=== PATIENT | female | born 1995 | race African-American/Black ===

== ENCOUNTER 2017-04-28 16:42 | Emergency (ER) | payer OTHER ==
[~2017-04-28] VITALS: Ht 162.6 cm; Wt 65.5 kg
[2017-04-28 16:43] VITALS: BP 120/69
[2017-04-28] MEDS ORDERED: AMOX500C PO (18:04)
[2017-04-28 18:27] LABS: CONTROL LINE HCG INT CTR LINE PRESENT
== END 2017-04-28 18:57 | disposition home or self-care (01) ==
LOC: M ED 16:42
DX: J02.0 Streptococcal pharyngitis (principal); N92.6 Irregular menstruation, unspecified

== ENCOUNTER 2017-08-01 06:36 | Emergency (ER) | payer OTHER ==
[2017-08-01] MEDS: ONDANSETRON 4 MG ORAL DISINTEGRATING TAB (S0181) PO (07:26)
== END 2017-08-01 08:40 | disposition home or self-care (01) ==
LOC: M ED 06:36
DX: O99.281 Endocrine, nutritional and metabolic diseases complicating pregnancy, first trimester (principal); E86.0 Dehydration; O30.001 Twin pregnancy, unspecified number of placenta and unspecified number of amniotic sacs, first trimester; Z3A.00 Weeks of gestation of pregnancy not specified; Z79.2 Long term (current) use of antibiotics
CPT/HCPCS: 99283

== ENCOUNTER 2017-08-16 12:29 | Emergency (ER) | payer OTHER ==
[2017-08-16 13:57] LABS: BASO % 0.4 % (0.0-1.0); EOS # 0.1 10^3/uL (0.0-0.50); HEMATOCRIT 37.8 % (36.0-47.0); HEMOGLOBIN 12.7 g/dl (12.0-16.0); IMMATURE GRANULOCYTE % 0.4 % (0-3.0); LYMPH # 2.6 10^3/uL (1.5-6.5); LYMPH % 23.2 % (24.0-44.0); MEAN CORPUSCULAR HGB CONC 33.6 g/dl (32.0-36.5); MEAN CORPUSCULAR VOLUME 80.3 fl (80.0-96.0); MONO % 8.9 % (0.0-5.0); NEUTROPHILS # 7.6 10^3/uL (1.8-7.7); NEUTROPHILS % 66.1 % (36.0-66.0); PLATELET COUNT, AUTOMATED 238 10^3/uL (150-450); RED BLOOD COUNT 4.71 10^6/uL (4.00-5.40); RED CELL DISTRIBUTION WIDTH 16.9 % (11.5-14.5); WHITE BLOOD COUNT 11.4 10^3/uL (4.0-10.0)
[2017-08-16 14:54] LABS: HCG, SERUM QUANTITATIVE 164836 MIU/ML
== END 2017-08-16 16:43 | disposition home or self-care (01) ==
LOC: M ED 12:29
DX: O20.0 Threatened abortion (principal); O46.92 Antepartum hemorrhage, unspecified, second trimester; O30.032 Twin pregnancy, monochorionic/diamniotic, second trimester; Z3A.15 15 weeks gestation of pregnancy; Z79.899 Other long term (current) drug therapy
CPT/HCPCS: 76817

== ENCOUNTER → 2017-08-31 | Outpatient (CLI) | payer OTHER | LOC: M RAD 12:43 | DX: Z36.89 Encounter for other specified antenatal screening (principal); O30.032 Twin pregnancy, monochorionic/diamniotic, second trimester; Z3A.17 17 weeks gestation of pregnancy | CPT/HCPCS: 76816 ==

== ENCOUNTER 2017-09-02 16:55 | Outpatient (CLI) | payer OTHER ==
[2017-09-02 17:58] LABS: HEMATOCRIT 34.3 % (36.0-47.0); HEMOGLOBIN 11.8 g/dl (12.0-15.5); MEAN CORPUSCULAR HEMOGLOBIN 27.6 pg (27.0-33.0); MEAN CORPUSCULAR HGB CONC 34.4 g/dl (32.0-36.5); MEAN CORPUSCULAR VOLUME 80.3 fl (80.0-96.0); PLATELET COUNT, AUTOMATED 233 10^3/uL (150-450); RED BLOOD COUNT 4.27 10^6/uL (4.00-5.40); RED CELL DISTRIBUTION WIDTH 16.2 % (11.5-14.5); WHITE BLOOD COUNT 10.6 10^3/uL (4.0-10.0)
[2017-09-02 18:25] LABS: APPEARANCE, URINE CLOUDY (CLEAR); BACTERIA, URINE AUTO 1+ (NEGATIVE); BILIRUBIN, URINE AUTO NEGATIVE (NEGATIVE); BLOOD, URINE BLOOD NEGATIVE (NEGATIVE); COLOR, URINE YELLOW (YELLOW); GLUCOSE, URINE (UA) AUTO NEGATIVE (NEGATIVE); KETONE, URINE AUTO NEGATIVE (NEGATIVE); LEUKOCYTE ESTERASE, URINE AUTO 2+ (NEGATIVE); MUCUS, URINE SMALL (NEGATIVE); NITRITE, URINE AUTO NEGATIVE (NEGATIVE); PROTEIN, URINE AUTO NEGATIVE (NEGATIVE); RBC, URINE AUTO 2 /HPF (0-3); SPECIFIC GRAVITY URINE AUTO 1.011 (1.002-1.035); SQUAMOUS EPITHELIAL CELL UR AU 13 /HPF (0-6); UROBILINOGEN, URINE AUTO 0.2 mg/dL (0.0-2.0); WBC, URINE AUTO 11 /HPF (0-3)
[2017-09-02 18:27] LABS: ALBUMIN 3.3 GM/DL (3.2-5.2); ALKALINE PHOSPHATASE 56 U/L (45-117); ALT/SGPT 21 U/L (12-78); AMYLASE 111 U/L (25-115); ANION GAP 8 MEQ/L (8-16); AST/SGOT 21 U/L (7-37); BILIRUBIN,TOTAL 0.2 MG/DL (0.2-1.0); BLOOD UREA NITROGEN 6 MG/DL (7-18); CARBON DIOXIDE LEVEL 24 MEQ/L (21-32); CHLORIDE LEVEL 107 MEQ/L (98-107); CREATININE FOR GFR 0.55 MG/DL (0.55-1.30); GLUCOSE, FASTING 68 MG/DL (70-100); LIPASE 360 U/L (73-393); POTASSIUM SERUM 3.9 MEQ/L (3.5-5.1); SODIUM LEVEL 139 MEQ/L (136-145); TOTAL PROTEIN 7.4 GM/DL (6.4-8.2)
[2017-09-02] MEDS: LR 1,000 ML IV (20:10)
[2017-09-02] MEDS ORDERED: DOCUSATE SODIUM 100 MG CAP PO (20:15)
[2017-09-02] MEDS: PERCOCET 5MG/325MG TAB PO (20:27)
[2017-09-03] MEDS: PERCOCET 5MG/325MG TAB PO ×3 (05:02→20:24)
[2017-09-03] MEDS: LR 1,000 ML IV (05:02)
[2017-09-03] MEDS: ONDANSETRON 4MG/2ML VIAL (J2405) IV (09:34)
[2017-09-03] MEDS: LIDOCAINE 2% JELLY 30 ML TOP (10:00)
[2017-09-03 10:37] LABS: APPEARANCE, URINE CLEAR (CLEAR); BACTERIA, URINE AUTO NEGATIVE (NEGATIVE); BILIRUBIN, URINE AUTO NEGATIVE (NEGATIVE); BLOOD, URINE BLOOD 3+ (NEGATIVE); COLOR, URINE YELLOW (YELLOW); GLUCOSE, URINE (UA) AUTO NEGATIVE (NEGATIVE); KETONE, URINE AUTO 1+ mg/dL (NEGATIVE); LEUKOCYTE ESTERASE, URINE AUTO NEGATIVE (NEGATIVE); MUCUS, URINE SMALL (NEGATIVE); NITRITE, URINE AUTO NEGATIVE (NEGATIVE); PROTEIN, URINE AUTO NEGATIVE (NEGATIVE); RBC, URINE AUTO 3 /HPF (0-3); SPECIFIC GRAVITY URINE AUTO 1.006 (1.002-1.035); SQUAMOUS EPITHELIAL CELL UR AU 1 /HPF (0-6); UROBILINOGEN, URINE AUTO 0.2 mg/dL (0.0-2.0); WBC, URINE AUTO 9 /HPF (0-3)
== END 2017-09-03 21:35 | disposition home or self-care (01) ==
LOC: M LDO 16:55
DX: O26.892 Other specified pregnancy related conditions, second trimester (principal); R10.9 Unspecified abdominal pain; O30.032 Twin pregnancy, monochorionic/diamniotic, second trimester; O26.832 Pregnancy related renal disease, second trimester; I31.3 Pericardial effusion (noninflammatory); O31.22X0 Continuing pregnancy after intrauterine death of one fetus or more, second trimester, not applicable or unspecified; Z79.891 Long term (current) use of opiate analgesic
CPT/HCPCS: J2405

== ENCOUNTER 2017-09-07 16:01 | Emergency (ER) | payer OTHER ==
[2017-09-07] MEDS: ONDANSETRON 4MG/2ML VIAL (J2405) IV (16:30)
[2017-09-07] MEDS: LR 1,000 ML IV (16:52)
[2017-09-07] MEDS: MULTIVITAMIN -ADULT INJECTION 10 ML, THIAMINE INJection 100 MG, FOLIC ACID 1 MG in NS 1... IV (18:30)
[2017-09-07 18:50] LABS: KETONE, URINE AUTO RFX 2+ mg/dL (NEGATIVE); MUCUS, URINE RFX SMALL (NEGATIVE); NITRITE, URINE AUTO RFX NEGATIVE (NEGATIVE); RBC, URINE AUTO RFX 1 /HPF (0-3); SPECIFIC GRAVITY UR AUTO RFX 1.012 (1.002-1.035); SQUAM EPITHELIAL CELL UR AURFX 4 /HPF (0-6)
[2017-09-07 19:28] LABS: LEUKOCYTE ESTERASE UR AUTO RFX 1+ (NEGATIVE); WBC, URINE AUTO RFX 11 /HPF (0-3)
[2017-09-07] MEDS: CEPHALEXIN 500 MG CAP PO (20:11)
[2017-09-07] MEDS: ONDANSETRON 4 MG ORAL DISINTEGRATING TAB (S0181) PO (20:12)
== END 2017-09-07 21:08 | disposition home or self-care (01) ==
LOC: M ED 16:01
DX: O23.01 Infections of kidney in pregnancy, first trimester (principal); O31.22X1 Continuing pregnancy after intrauterine death of one fetus or more, second trimester, fetus 1; O21.9 Vomiting of pregnancy, unspecified; Z3A.18 18 weeks gestation of pregnancy; Z79.899 Other long term (current) drug therapy
CPT/HCPCS: J2405

== ENCOUNTER 2018-01-21 02:44 | Outpatient (CLI) | payer OTHER ==
[2018-01-21] MEDS ORDERED: AMPICILLIN 2 GM VIAL As Ordered (04:09)
[2018-01-21] MEDS: AMPICILLIN SOD 2 GM in D5W MINI-BAG PLUS 100 ML IV (04:20)
[2018-01-21] MEDS ORDERED: ONDANSETRON 4MG/2ML VIAL (J2405) As Ordered (04:43)
[2018-01-21] MEDS ORDERED: ONDANSETRON 4MG/2ML VIAL (J2405) IV (04:45)
== END 2018-01-21 04:50 | disposition short-term general hospital (02) ==
LOC: M LDO 02:44
DX: O42.013 Preterm premature rupture of membranes, onset of labor within 24 hours of rupture, third trimester (principal); Z3A.37 37 weeks gestation of pregnancy
CPT/HCPCS: 59025